=== PATIENT | male | born 2000 | race Two or more races ===

== ENCOUNTER 2020-11-16 20:42 | Emergency (ER) | payer BC, MEDICAID, OTHER ==
[~2020-11-16] VITALS: Ht 170.2 cm; Wt 64.8 kg
[2020-11-16] MEDS ORDERED: SODIUM CHLORIDE FLUSH 10ML SYR IVF ONE (21:30)
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
[2020-11-16 21:49] LABS: ALBUMIN 4.2 g/dL (3.4-5.0); ANION GAP 6 mmol/L (5-15); CALCIUM 8.9 mg/dL (8.5-10.1); CHLORIDE 108 mmol/L (98-107)
[2020-11-16 21:53] LABS: ALANINE AMINOTRANSFERASE 59 U/L (12-78); ALKALINE PHOSPHATASE 102 U/L (45-117); BILIRUBIN,TOTAL 0.5 mg/dL (0.2-1.0); CREATININE 0.79 mg/dL (0.7-1.3); TOTAL PROTEIN 7.9 g/dL (6.4-8.2)
[2020-11-16 21:54] LABS: BASOPHILS % (AUTO) 1 % (0-1); EOSINOPHILS % (AUTO) 1 % (1-7); LYMPHOCYTES % (AUTO) 22 % (22-44); MEAN CORPUSCULAR HEMOGLOBIN 29.1 pg (27.5-34.5); MEAN CORPUSCULAR HGB CONC 33.4 g/dL (33.2-36.2); MEAN PLATELET VOLUME 8.7 fL (7.4-10.4); MONOCYTES % (AUTO) 7 % (2-9); NEUTROPHILS % (AUTO) 70 % (42-75); PLATELET COUNT 278 x10^3/uL (130-400); RED BLOOD COUNT 5.44 x10^6/uL (4.38-5.82); RED CELL DISTRIBUTION WIDTH 12.7 % (9.4-14.8)
[2020-11-16 21:55] LABS: MD NO
--- NOTE | 2020-11-16 22:30 | NUR ---
patient resting in bed with eyes closed. visitor remains at bedside. VS remain stable on RA. call lozada in reach/ safety maintained. will continue to monitor
[2020-11-16] MEDS ORDERED: OMNIPAQUE 350 MG/ML, 100ML BOTTLE ONE (22:44)
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
[2020-11-16 23:26] VITALS: BP 114/62
== END 2020-11-16 23:29 | disposition home or self-care (01) ==
LOC: ED 21:19
DX: S20.212A Contusion of left front wall of thorax, initial encounter (principal)
CPT/HCPCS: 36415; 71260; 74177; 80053; 85025; 99285; Q9967